=== PATIENT | female | born 1975 | race Caucasian/White ===

== ENCOUNTER 2020-06-15 18:29 | Emergency (ER) | payer OTHER ==
[~2020-06-15] VITALS: Ht 170.2 cm; Wt 85.7 kg
[2020-06-15 18:50] VITALS: Ht 170.2 cm; Wt 85.7 kg
[2020-06-15 21:11] VITALS: BP 110/77
== END 2020-06-15 21:13 | disposition home or self-care (01) ==
LOC: ED 18:29
DX: K64.5 Perianal venous thrombosis (principal); Z88.0 Allergy status to penicillin; Z88.8 Allergy status to other drugs, medicaments and biological substances
CPT/HCPCS: J2001